=== PATIENT | male | born 1935 | race Caucasian/White ===

== ENCOUNTER 2020-03-22 00:02 | Inpatient (IN) | payer OTHER, BC ==
[2020-03-22 00:42] VITALS: BMI 20.1
[2020-03-22 01:39] LABS: BASO % 0.2 % (0-2.0); HEMATOCRIT 34.7 % (35.4-49); HEMOGLOBIN 11.4 GM/dL (11.7-16.9); LYMPH % 23.7 % (8-40); MCH 26.4 pg (25.7-33.7); MCHC 32.8 g/dl (32.0-35.9); MEAN CELL VOLUME 80.5 fl (80-96); MEAN PLT VOLUME 8.9 fl (7.5-11.1); MONO % 10.2 % (3.8-10.2); NEUT % 65.9 % (42.8-82.8); PLATELET COUNT 25 K/MM3 (134-434); RBC 4.31 M/mm3 (4.00-5.60)
[2020-03-22 01:49] LABS: INR 1.08 (0.83-1.09); PROTHROMBIN TIME (PATIENT) 13.2 SEC (9.7-13.0)
[2020-03-22 01:52] LABS: ACTIVATED PTT 31.1 SECONDS (25.2-36.5)
[2020-03-22 01:53] LABS: WHITE BLOOD COUNT 1.3 K/mm3 (4.0-10.0)
[2020-03-22 01:59] LABS: POTASSIUM 3.9 mmol/L (3.5-5.1)
[2020-03-22 02:00] LABS: ALBUMIN 2.8 g/dl (3.4-5.0); CALCIUM 7.9 mg/dL (8.5-10.1)
[2020-03-22 02:02] LABS: BLOOD UREA NITROGEN 37.5 mg/dL (7-18)
[2020-03-22 02:05] LABS: CREATININE 1.5 mg/dL (0.55-1.3)
[2020-03-22 02:06] LABS: BILIRUBIN,TOTAL 0.5 mg/dL (0.2-1)
[2020-03-22] MEDS ORDERED: PIPERACILLIN/TAZOB 4.5 GM 4.5 GM in DEXTROSE 5%-WATER 100 ML IVPB ONE (04:23)
[2020-03-22] MEDS ORDERED: VANCOMYCIN 1,000 MG in DEXTROSE 5%-WATER - 250 ML IVPB ONE (04:23)
[2020-03-22] MEDS ORDERED: SODIUM CHLORIDE 1,000 ML IV SCH ×2 (04:30→06:07)
[2020-03-22] MEDS ORDERED: VANCOMYCIN 1 GRAM (PRE-DOCKED) 1,000 MG/250 ML BAG IVPB ONE (04:47)
[2020-03-22] MEDS ORDERED: PIPERACILLIN/TAZOB 4.5 GM 4.5 GM/100 ML BAG IVPB ONE ×2 (04:47→16:57)
[2020-03-22 05:50] LABS: BASO % 0.2 % (0-2.0); HEMATOCRIT 32.1 % (35.4-49); HEMOGLOBIN 10.6 GM/dL (11.7-16.9); LYMPH % 24.9 % (8-40); MCH 26.7 pg (25.7-33.7); MCHC 33.1 g/dl (32.0-35.9); MEAN CELL VOLUME 80.6 fl (80-96); MEAN PLT VOLUME 9.1 fl (7.5-11.1); MONO % 8.2 % (3.8-10.2); NEUT % 66.7 % (42.8-82.8); PLATELET COUNT 28 K/MM3 (134-434); RBC 3.98 M/mm3 (4.00-5.60); RDW 18.1 % (11.9-15.9); WHITE BLOOD COUNT 1.5 K/mm3 (4.0-10.0)
[2020-03-22] MEDS ORDERED: LIDOCAINE 5% TOPICAL PATCH TP ONE (07:23)
[2020-03-22] MEDS ORDERED: ACETAMINOPHEN 1000 MG/100 ML VIAL (NON FORMULARY) IVPB ONE (07:23)
[2020-03-22] MEDS ORDERED: LIDOCAINE 5% TOPICAL PATCH ONE (08:20)
[2020-03-22] MEDS ORDERED: ACETAMINOPHEN INJECTION 100 ML IVPB ONE (08:20)
[2020-03-22 09:50] LABS: PLATELET ESTIMATE DECREASED
[2020-03-22 09:51] LABS: PLATELET ESTIMATE DECREASED
[2020-03-22 10:06] LABS: BASO % 0.5 % (0-2.0); EOS % 0.1 % (0-4.5); HEMATOCRIT 31.4 % (35.4-49); HEMOGLOBIN 10.3 GM/dL (11.7-16.9); LYMPH % 26.9 % (8-40); MCH 26.3 pg (25.7-33.7); MCHC 32.8 g/dl (32.0-35.9); MEAN CELL VOLUME 80.3 fl (80-96); MONO % 10.8 % (3.8-10.2); NEUT % 61.7 % (42.8-82.8); PLATELET COUNT 26 K/MM3 (134-434); RBC 3.91 M/mm3 (4.00-5.60); RDW 17.9 % (11.9-15.9); RETICULOCYTES 0.49 % (0.5-1.5)
[2020-03-22 10:24] LABS: POTASSIUM 3.5 mmol/L (3.5-5.1)
[2020-03-22 10:26] LABS: CALCIUM 7.1 mg/dL (8.5-10.1)
[2020-03-22 10:27] LABS: BLOOD UREA NITROGEN 38.3 mg/dL (7-18)
[2020-03-22 10:30] LABS: CREATININE 1.1 mg/dL (0.55-1.3)
[2020-03-22 10:39] LABS: WHITE BLOOD COUNT 1.1 K/mm3 (4.0-10.0)
[2020-03-22 10:43] LABS: EPI CELLS 35 /uL (0-25.1); HYALINE CASTS 20 /uL (0-3.1); URINE APPEARANCE TURBID; URINE BACTERIA 26 /uL (0-1359); URINE BILIRUBIN NEGATIVE (NEGATIVE); URINE COLOR YELLOW; URINE GLUCOSE (UA) NEGATIVE (NEGATIVE); URINE KETONE NEGATIVE (NEGATIVE); URINE LEUK ESTERASE NEGATIVE (NEGATIVE); URINE NITRITE NEGATIVE (NEGATIVE); URINE PROTEIN 1+ (NEGATIVE); URINE RBC 57 /uL (0-23.9); URINE UROBILINOGEN 0.2 mg/dL (0.2-1.0); URINE WBC 18 /uL (0-25.8)
[2020-03-22] MEDS ORDERED: SODIUM CHLORIDE 500 ML IV STA (10:57)
[2020-03-22 14:03] LABS: ANISOCYTOSIS 1+; MACROCYTOSIS 1+
[2020-03-22 14:05] LABS: PLATELET ESTIMATE DECREASED
[2020-03-22] MEDS: PIPERACILLIN/TAZOB 4.5 GM 4.5 GM in DEXTROSE 5%-WATER 100 ML IVPB SCH ×2 (17:19→18:20)
[2020-03-22] MEDS: SODIUM CHLORIDE 1,000 ML IV SCH (17:19)
[2020-03-22] MEDS ORDERED: DEXAMETHASONE SOD PHOSPHATE 4 MG/1 ML VIAL ONE (18:21)
[2020-03-22] MEDS: DEXAMETHASONE SOD PHOSPHATE 4 MG/1 ML VIAL IVPB SCH (18:23)
[2020-03-22] MEDS: LIDOCAINE PATCH REMOVAL MC SCH (22:53)
[2020-03-22] MEDS: ACETAMINOPHEN 325 MG TABLET (FP) PO PRN (22:53)
[2020-03-22] MEDS ORDERED: REMDESIVIR 200 MG in SODIUM CHLORIDE 210 ML IVPB ONE (23:00)
[2020-03-22] MEDS ORDERED: VANCOMYCIN 750 MG in DEXTROSE 5%-WATER - 250 ML IVPB SCH (23:00)
[2020-03-23] MEDS ORDERED: PIPERACILLIN/TAZOBACTAM 4.5 GM VIAL IVPB ONE ×3 (01:55→17:13)
[2020-03-23] MEDS ORDERED: DEXTROSE 5%-WATER 100 ML IVPB ONE ×3 (01:55→17:14)
[2020-03-23] MEDS: PIPERACILLIN/TAZOB 4.5 GM 4.5 GM in DEXTROSE 5%-WATER 100 ML IVPB SCH ×3 (03:16→17:16)
[2020-03-23] MEDS: DEXAMETHASONE SOD PHOSPHATE 4 MG/1 ML VIAL IVPB SCH (12:31)
[2020-03-23 14:06] LABS: BASO % 0.2 % (0-2.0); HEMATOCRIT 36.2 % (35.4-49); HEMOGLOBIN 11.8 GM/dL (11.7-16.9); MCH 26.4 pg (25.7-33.7); MCHC 32.5 g/dl (32.0-35.9); MEAN PLT VOLUME 10.1 fl (7.5-11.1); MONO % 10.7 % (3.8-10.2); NEUT % 77.1 % (42.8-82.8); PLATELET COUNT 39 K/MM3 (134-434); RBC 4.46 M/mm3 (4.00-5.60); RDW 18.9 % (11.9-15.9); WHITE BLOOD COUNT 2.5 K/mm3 (4.0-10.0)
[2020-03-23 14:24] LABS: POTASSIUM 3.5 mmol/L (3.5-5.1)
[2020-03-23 14:26] LABS: CALCIUM 7.5 mg/dL (8.5-10.1)
[2020-03-23 14:27] LABS: ALBUMIN 2.4 g/dl (3.4-5.0); BLOOD UREA NITROGEN 27.8 mg/dL (7-18)
[2020-03-23 14:30] LABS: CREATININE 1.1 mg/dL (0.55-1.3)
[2020-03-23 14:31] LABS: BILIRUBIN,TOTAL 0.3 mg/dL (0.2-1)
[2020-03-23 14:33] LABS: TOT PROT 6.2 g/dl (6.4-8.2)
[2020-03-23] MEDS: ACETAMINOPHEN 325 MG TABLET (FP) PO PRN (14:43)
[2020-03-23] MEDS: SODIUM CHLORIDE 1,000 ML IV SCH (14:44)
[2020-03-23 15:09] LABS: ANISOCYTOSIS 1+; MACROCYTOSIS 1+; PLATELET ESTIMATE DECREASED
[2020-03-23] MEDS: AMINO ACIDS/PROTEIN HYDROLYS 30 ML LIQUID.PKT PO SCH (17:16)
[2020-03-23] MEDS: LIDOCAINE PATCH REMOVAL MC SCH (23:01)
[2020-03-23] MEDS ORDERED: PT OWN MED DRAWER 7, Y5N ONE (23:32)
[2020-03-23] MEDS: REMDESIVIR 100 MG in SODIUM CHLORIDE 230 ML IVPB SCH (23:37)
[2020-03-24] MEDS ORDERED: DEXTROSE 5%-WATER 100 ML IVPB ONE ×2 (03:02→08:26)
[2020-03-24] MEDS ORDERED: PIPERACILLIN/TAZOBACTAM 4.5 GM VIAL IVPB ONE ×2 (03:02→08:25)
[2020-03-24] MEDS: PIPERACILLIN/TAZOB 4.5 GM 4.5 GM in DEXTROSE 5%-WATER 100 ML IVPB SCH ×2 (03:15→09:13)
[2020-03-24 07:36] LABS: BASO % 0.2 % (0-2.0); HEMOGLOBIN 10.1 GM/dL (11.7-16.9); MCH 26.5 pg (25.7-33.7); MCHC 32.7 g/dl (32.0-35.9); MEAN CELL VOLUME 81.2 fl (80-96); MEAN PLT VOLUME 9.6 fl (7.5-11.1); MONO % 13.6 % (3.8-10.2); NEUT % 71.2 % (42.8-82.8); PLATELET COUNT 42 K/MM3 (134-434); RBC 3.82 M/mm3 (4.00-5.60); RDW 18.4 % (11.9-15.9)
[2020-03-24] MEDS: DEXAMETHASONE SOD PHOSPHATE 4 MG/1 ML VIAL IVPB SCH (09:13)
[2020-03-24] MEDS: AMINO ACIDS/PROTEIN HYDROLYS 30 ML LIQUID.PKT PO SCH ×2 (09:14→18:05)
[2020-03-24] MEDS ORDERED: PT OWN MED DRAWER 7, Y5N ONE (09:15)
[2020-03-24] MEDS: MULTIVIT-MINERALS ORAL LIQUID PO SCH (09:16)
[2020-03-24] MEDS ORDERED: TAMSULOSIN HCL 0.4 MG CAP PO SCH (10:09)
[2020-03-24 11:01] LABS: ANISOCYTOSIS 0; HELMET CELLS 0; HOWELL-JOLLY BODIES 0; MACROCYTOSIS 0; OVALOCYTE 0; PLATELET ESTIMATE DECREASED; ROULEAU 0; SICKELED CELLS 0; TARGET CELLS 0; TEAR DROP CELLS 0; TOXIC GRANULATION 0
[2020-03-24 13:04] LABS: BILIRUBIN,TOTAL 0.2 mg/dL (0.2-1); BLOOD UREA NITROGEN 25.9 mg/dL (7-18); CALCIUM 7.3 mg/dL (8.5-10.1); CREATININE 0.9 mg/dL (0.55-1.3); MAGNESIUM 1.9 mg/dL (1.8-2.4); PHOSPHOROUS 3.1 mg/dL (2.5-4.9); POTASSIUM 3.3 mmol/L (3.5-5.1); TOT PROT 5.2 g/dl (6.4-8.2)
[2020-03-24] MEDS ORDERED: POTASSIUM CHLORIDE ORAL LIQUID 20 MEQ/15 ML PO ONE (15:31)
[2020-03-24] MEDS: SODIUM CHLORIDE 1,000 ML IV SCH (15:57)
[2020-03-24] MEDS ORDERED: PIPERACILLIN/TAZOBACTAM 3.375 GM VIAL IVPB ONE (17:49)
[2020-03-24] MEDS ORDERED: DEXTROSE 5%-WATER - 50 ML IVPB ONE (17:49)
[2020-03-24] MEDS: PIPERACILLIN/TAZOB 3.375 GM 3.375 GM in DEXTROSE 5%-WATER - 50 ML IVPB SCH (18:05)
[2020-03-24] MEDS ORDERED: LIDOCAINE PATCH REMOVAL MC SCH (22:00)
[2020-03-24] MEDS: REMDESIVIR 100 MG in SODIUM CHLORIDE 230 ML IVPB SCH (22:34)
[2020-03-25] MEDS ORDERED: PIPERACILLIN/TAZOBACTAM 3.375 GM VIAL IVPB ONE ×3 (01:17→17:25)
[2020-03-25] MEDS ORDERED: DEXTROSE 5%-WATER - 50 ML IVPB ONE ×3 (01:17→17:25)
[2020-03-25] MEDS: PIPERACILLIN/TAZOB 3.375 GM 3.375 GM in DEXTROSE 5%-WATER - 50 ML IVPB SCH ×3 (01:18→17:35)
[2020-03-25 07:15] LABS: POTASSIUM 3.2 mmol/L (3.5-5.1)
[2020-03-25 07:16] LABS: BASO % 0.1 % (0-2.0); HEMATOCRIT 31.3 % (35.4-49); HEMOGLOBIN 10.4 GM/dL (11.7-16.9); LYMPH % 17.6 % (8-40); MCH 26.7 pg (25.7-33.7); MCHC 33.1 g/dl (32.0-35.9); MEAN CELL VOLUME 80.7 fl (80-96); MEAN PLT VOLUME 9.5 fl (7.5-11.1); MONO % 14.2 % (3.8-10.2); NEUT % 68.1 % (42.8-82.8); PLATELET COUNT 61 K/MM3 (134-434); RBC 3.88 M/mm3 (4.00-5.60); RDW 18.5 % (11.9-15.9); WHITE BLOOD COUNT 2.7 K/mm3 (4.0-10.0)
[2020-03-25 07:22] LABS: BLOOD UREA NITROGEN 25.3 mg/dL (7-18); CREATININE 0.9 mg/dL (0.55-1.3); MAGNESIUM 1.6 mg/dL (1.8-2.4)
[2020-03-25 07:23] LABS: PHOSPHOROUS 2.4 mg/dL (2.5-4.9)
[2020-03-25 07:35] LABS: CALCIUM 6.9 mg/dL (8.5-10.1)
[2020-03-25] MEDS ORDERED: MAGNESIUM OXIDE 400 MG TABLET (FP) PO ONE ×2 (08:35→22:00)
[2020-03-25] MEDS ORDERED: PT OWN MED DRAWER 7, Y5N ONE ×3 (08:39→22:45)
[2020-03-25] MEDS ORDERED: NAPH,MB-DB/K PH,MBDB POWDER PACKET PO ONE (09:30)
[2020-03-25] MEDS: KCL 10 MEQ IVPB 10 MEQ/100 ML INFUS.BAG IVPB SCH (09:53)
[2020-03-25] MEDS ORDERED: SODIUM CHLORIDE 1,000 ML with POTASSIUM CHLORIDE 40 MEQ IV SCH (10:00)
[2020-03-25] MEDS: AMINO ACIDS/PROTEIN HYDROLYS 30 ML LIQUID.PKT PO SCH ×2 (10:03→17:35)
[2020-03-25] MEDS: DEXAMETHASONE SOD PHOSPHATE 4 MG/1 ML VIAL IVPB SCH (10:03)
[2020-03-25] MEDS: MULTIVIT-MINERALS ORAL LIQUID PO SCH (10:03)
[2020-03-25] MEDS: TAMSULOSIN HCL 0.4 MG CAP PO SCH (10:03)
[2020-03-25] MEDS: POTASSIUM CHLORIDE ORAL LIQUID 20 MEQ/15 ML PO SCH ×2 (10:03→22:03)
[2020-03-25 11:59] LABS: ANISOCYTOSIS 1+; MACROCYTOSIS 1+; PLATELET ESTIMATE DECREASED
[2020-03-25] MEDS: POTASSIUM CHLORIDE 40 MEQ in SODIUM CHLORIDE 1,000 ML IV SCH (15:36)
[2020-03-25 16:08] LABS: PARV B19 IGG 1.2 index (0.0-0.8); PARV B19 IGM 0.2 index (0.0-0.8)
[2020-03-25] MEDS: REMDESIVIR 100 MG in SODIUM CHLORIDE 230 ML IVPB SCH (23:09)
[2020-03-26] MEDS ORDERED: PIPERACILLIN/TAZOBACTAM 3.375 GM VIAL IVPB ONE (01:09)
[2020-03-26] MEDS ORDERED: DEXTROSE 5%-WATER - 50 ML IVPB ONE (01:09)
[2020-03-26] MEDS: PIPERACILLIN/TAZOB 3.375 GM 3.375 GM in DEXTROSE 5%-WATER - 50 ML IVPB SCH (01:13)
[2020-03-26] MEDS: POTASSIUM CHLORIDE 40 MEQ in SODIUM CHLORIDE 1,000 ML IV SCH (03:50)
[2020-03-26 08:14] LABS: BASO % 0.4 % (0-2.0); HEMATOCRIT 31.5 % (35.4-49); HEMOGLOBIN 10.5 GM/dL (11.7-16.9); LYMPH % 17.7 % (8-40); MCH 26.6 pg (25.7-33.7); MCHC 33.3 g/dl (32.0-35.9); MONO % 8.7 % (3.8-10.2); NEUT % 73.2 % (42.8-82.8); PLATELET COUNT 82 K/MM3 (134-434); RBC 3.93 M/mm3 (4.00-5.60); RDW 18.9 % (11.9-15.9); WHITE BLOOD COUNT 2.6 K/mm3 (4.0-10.0)
[2020-03-26 08:29] LABS: POTASSIUM 3.9 mmol/L (3.5-5.1)
[2020-03-26 08:36] LABS: CALCIUM 7.1 mg/dL (8.5-10.1)
[2020-03-26 08:38] LABS: BLOOD UREA NITROGEN 21.9 mg/dL (7-18); MAGNESIUM 1.6 mg/dL (1.8-2.4)
[2020-03-26 08:40] LABS: CREATININE 0.8 mg/dL (0.55-1.3); PHOSPHOROUS 2.2 mg/dL (2.5-4.9)
[2020-03-26 08:41] LABS: BILIRUBIN,TOTAL 0.4 mg/dL (0.2-1); TOT PROT 5.5 g/dl (6.4-8.2)
[2020-03-26] MEDS: AMINO ACIDS/PROTEIN HYDROLYS 30 ML LIQUID.PKT PO SCH ×2 (09:12→18:38)
[2020-03-26] MEDS: POTASSIUM CHLORIDE ORAL LIQUID 20 MEQ/15 ML PO SCH (09:12)
[2020-03-26] MEDS: PANTOPRAZOLE 40 MG TABLET PO SCH (09:13)
[2020-03-26] MEDS: TAMSULOSIN HCL 0.4 MG CAP PO SCH (09:13)
[2020-03-26] MEDS: MULTIVIT-MINERALS ORAL LIQUID PO SCH (09:13)
[2020-03-26] MEDS: DEXAMETHASONE SOD PHOSPHATE 4 MG/1 ML VIAL IVPB SCH (09:13)
[2020-03-26 10:05] LABS: ANISOCYTOSIS 0; MACROCYTOSIS 0; PLATELET ESTIMATE DECREASED
[2020-03-26] MEDS ORDERED: MAGNESIUM OXIDE 400 MG TABLET (FP) PO ONE (10:18)
[2020-03-26] MEDS ORDERED: NAPH,MB-DB/K PH,MBDB POWDER PACKET PO ONE (10:19)
[2020-03-26] MEDS: ENOXAPARIN NA (PORCINE) 60 MG/0.6 ML DISP.SYRIN SQ SCH ×2 (11:55→22:38)
[2020-03-26] MEDS ORDERED: SODIUM CHLORIDE 1,000 ML IV SCH (12:04)
[2020-03-26] MEDS ORDERED: REMDESIVIR 100 MG in SODIUM CHLORIDE 230 ML IVPB SCH (16:00)
[2020-03-27] MEDS: MULTIVIT-MINERALS ORAL LIQUID PO SCH (11:25)
[2020-03-27] MEDS: ENOXAPARIN NA (PORCINE) 60 MG/0.6 ML DISP.SYRIN SQ SCH ×2 (11:25→22:52)
[2020-03-27] MEDS: TAMSULOSIN HCL 0.4 MG CAP PO SCH (11:25)
[2020-03-27] MEDS: AMINO ACIDS/PROTEIN HYDROLYS 30 ML LIQUID.PKT PO SCH ×2 (11:25→16:48)
[2020-03-27] MEDS: DEXAMETHASONE SOD PHOSPHATE 4 MG/1 ML VIAL IVPB SCH (11:25)
[2020-03-27] MEDS: PANTOPRAZOLE 40 MG TABLET PO SCH (11:25)
[2020-03-28 08:51] LABS: POTASSIUM 3.8 mmol/L (3.5-5.1)
[2020-03-28 08:54] LABS: ALBUMIN 2.1 g/dl (3.4-5.0); CALCIUM 7.7 mg/dL (8.5-10.1); MAGNESIUM 1.6 mg/dL (1.8-2.4)
[2020-03-28 08:57] LABS: CREATININE 0.8 mg/dL (0.55-1.3)
[2020-03-28 08:58] LABS: PHOSPHOROUS 2.9 mg/dL (2.5-4.9)
[2020-03-28 08:59] LABS: BILIRUBIN,TOTAL 0.3 mg/dL (0.2-1); TOT PROT 5.4 g/dl (6.4-8.2)
[2020-03-28 09:09] LABS: BASO % 0.2 % (0-2.0); HEMATOCRIT 30.1 % (35.4-49); HEMOGLOBIN 9.8 GM/dL (11.7-16.9); LYMPH % 13.8 % (8-40); MCH 26.4 pg (25.7-33.7); MCHC 32.6 g/dl (32.0-35.9); MEAN CELL VOLUME 80.9 fl (80-96); MEAN PLT VOLUME 9.4 fl (7.5-11.1); PLATELET COUNT 117 K/MM3 (134-434); RBC 3.72 M/mm3 (4.00-5.60); RDW 18.3 % (11.9-15.9); WHITE BLOOD COUNT 5.2 K/mm3 (4.0-10.0)
[2020-03-28] MEDS ORDERED: PT OWN MED DRAWER 7, Y5N ONE (10:16)
[2020-03-28] MEDS: AMINO ACIDS/PROTEIN HYDROLYS 30 ML LIQUID.PKT PO SCH ×2 (10:22→17:03)
[2020-03-28] MEDS: MULTIVIT-MINERALS ORAL LIQUID PO SCH (10:22)
[2020-03-28] MEDS: PANTOPRAZOLE 40 MG TABLET PO SCH (10:22)
[2020-03-28] MEDS: TAMSULOSIN HCL 0.4 MG CAP PO SCH (10:22)
[2020-03-28] MEDS: ENOXAPARIN NA (PORCINE) 60 MG/0.6 ML DISP.SYRIN SQ SCH ×2 (10:22→22:54)
[2020-03-28] MEDS: DEXAMETHASONE SOD PHOSPHATE 4 MG/1 ML VIAL IVPB SCH (10:22)
[2020-03-28 10:37] LABS: ANISOCYTOSIS 0; HELMET CELLS 0; HOWELL-JOLLY BODIES 0; MACROCYTOSIS 0; OVALOCYTE 0; PLATELET ESTIMATE DECREASED; ROULEAU 0; SICKELED CELLS 0; TARGET CELLS 0; TEAR DROP CELLS 0; TOXIC GRANULATION 0
[2020-03-29 01:37] VITALS: TEMP 98.1
[2020-03-29 07:03] VITALS: BP 138/76
[2020-03-29 07:21] LABS: BASO % 0.1 % (0-2.0); EOS % 0.1 % (0-4.5); HEMATOCRIT 28.9 % (35.4-49); HEMOGLOBIN 9.4 GM/dL (11.7-16.9); LYMPH % 11.4 % (8-40); MCH 26.3 pg (25.7-33.7); MCHC 32.6 g/dl (32.0-35.9); MEAN CELL VOLUME 80.8 fl (80-96); MEAN PLT VOLUME 9.1 fl (7.5-11.1); NEUT % 84.4 % (42.8-82.8); PLATELET COUNT 128 K/MM3 (134-434); RBC 3.58 M/mm3 (4.00-5.60); RDW 18.4 % (11.9-15.9); WHITE BLOOD COUNT 7.7 K/mm3 (4.0-10.0)
[2020-03-29 09:01] VITALS: PULSE 94
[2020-03-29] MEDS ORDERED: PT OWN MED DRAWER 7, Y5N ONE (09:43)
[2020-03-29] MEDS: ENOXAPARIN NA (PORCINE) 60 MG/0.6 ML DISP.SYRIN SQ SCH (09:48)
[2020-03-29] MEDS: AMINO ACIDS/PROTEIN HYDROLYS 30 ML LIQUID.PKT PO SCH (09:49)
[2020-03-29] MEDS: MULTIVIT-MINERALS ORAL LIQUID PO SCH (09:49)
[2020-03-29] MEDS: TAMSULOSIN HCL 0.4 MG CAP PO SCH (09:49)
[2020-03-29] MEDS: PANTOPRAZOLE 40 MG TABLET PO SCH (09:49)
[2020-03-29 10:42] LABS: ANISOCYTOSIS 1+; PLATELET ESTIMATE DECREASED
== END 2020-03-29 12:00 | disposition home or self-care (01) | DRG 871 ==
LOC: JER 00:02 → JERBED 16:48 → J4W 03-23 00:49
PROVIDERS: ADMIT Hospitalist; ATTEND Internal Medicine
PROC: XW13325 Transfusion of Convalescent Plasma (Nonautologous) into Peripheral Vein, Percutaneous Approach, New Technology Group 5 (ICD-10-PCS; principal; 2020-03-22)
PROC: XW033E5 Introduction of Remdesivir Anti-infective into Peripheral Vein, Percutaneous Approach, New Technology Group 5 (ICD-10-PCS; 2020-03-22)
DX: A41.9 Sepsis, unspecified organism (principal); U07.1 COVID-19; J12.89 Other viral pneumonia; D61.818 Other pancytopenia; N17.9 Acute kidney failure, unspecified; E87.1 Hypo-osmolality and hyponatremia; E83.42 Hypomagnesemia; D70.9 Neutropenia, unspecified; R09.02 Hypoxemia; M54.9 Dorsalgia, unspecified; R33.9 Retention of urine, unspecified; R41.82 Altered mental status, unspecified; D69.6 Thrombocytopenia, unspecified; R19.7 Diarrhea, unspecified
CPT/HCPCS: 36415; 36430; 70450-TC; 71045-TC-FY; 72100-TC-FY; 72170-TC-FY; 80048; 80053; 80061; 81003; 82040; 82550; 82553; 82728; 82746; 82962; 83605; 83615; 83721; 83735; 84100; 84155; 84165; 84443; 84484; 85025; 85045; 85379; 85384; 85610; 85730; 86140; 86747; 86850; 86900; 86901; 87040; 87086; 87804; 87899; 93005; 93010; 94761; 97116-GP; 97161-GP; 99291; C9399; C9803; J0131; P9017; U0003

== ENCOUNTER 2020-03-29 14:20 | Inpatient (IN) | payer OTHER, BC ==
[2020-03-29 15:23] VITALS: BMI 22.4
[2020-03-29 18:50] LABS: HEMATOCRIT 30.6 % (35.4-49); HEMOGLOBIN 9.9 GM/dL (11.7-16.9); MCH 26.2 pg (25.7-33.7); MCHC 32.3 g/dl (32.0-35.9); MEAN CELL VOLUME 81.1 fl (80-96); MEAN PLT VOLUME 9.3 fl (7.5-11.1); PLATELET COUNT 145 K/MM3 (134-434); RBC 3.77 M/mm3 (4.00-5.60); RDW 18.2 % (11.9-15.9); WHITE BLOOD COUNT 9.7 K/mm3 (4.0-10.0)
[2020-03-29 19:10] LABS: ALBUMIN 2.2 g/dl (3.4-5.0); BLOOD UREA NITROGEN 36.4 mg/dL (7-18)
[2020-03-29 19:11] LABS: CALCIUM 8.1 mg/dL (8.5-10.1)
[2020-03-29 19:13] LABS: CREATININE 1.1 mg/dL (0.55-1.3)
[2020-03-29 19:15] LABS: BILIRUBIN,TOTAL 0.7 mg/dL (0.2-1); TOT PROT 5.6 g/dl (6.4-8.2)
[2020-03-29 21:11] LABS: ANISOCYTOSIS 1+; MACROCYTOSIS 0; OVALOCYTE 1+; PLATELET ESTIMATE NORMAL; TEAR DROP CELLS 1+
[2020-03-29] MEDS ORDERED: ZINC SULFATE 220 MG TABLET PO SCH (22:00)
[2020-03-29] MEDS ORDERED: PANTOPRAZOLE 40 MG TABLET ONE (22:37)
[2020-03-29] MEDS ORDERED: CHOLECALCIFEROL (VIT D3) 1,000 UNIT (25 MCG) TABLET ONE (22:37)
[2020-03-29] MEDS ORDERED: ASCORBIC ACID 500 MG TABLET (FP) ONE (22:37)
[2020-03-29] MEDS: CHOLECALCIFEROL (VIT D3) 1,000 UNIT (25 MCG) TABLET PO SCH (23:54)
[2020-03-29] MEDS: ASCORBIC ACID 500 MG TABLET (FP) PO SCH (23:54)
[2020-03-29] MEDS: PANTOPRAZOLE 40 MG TABLET PO SCH (23:54)
[2020-03-30 08:12] LABS: HEMATOCRIT 29.1 % (35.4-49); HEMOGLOBIN 9.6 GM/dL (11.7-16.9); MCH 26.6 pg (25.7-33.7); MCHC 32.9 g/dl (32.0-35.9); MEAN CELL VOLUME 80.9 fl (80-96); MEAN PLT VOLUME 8.7 fl (7.5-11.1); PLATELET COUNT 143 K/MM3 (134-434); RDW 18.5 % (11.9-15.9); WHITE BLOOD COUNT 7.7 K/mm3 (4.0-10.0)
[2020-03-30 08:47] LABS: CALCIUM 7.9 mg/dL (8.5-10.1)
[2020-03-30 08:48] LABS: BLOOD UREA NITROGEN 40.3 mg/dL (7-18)
[2020-03-30] MEDS ORDERED: TAMSULOSIN HCL 0.4 MG CAP ONE (08:53)
[2020-03-30] MEDS: TAMSULOSIN HCL 0.4 MG CAP PO SCH (08:56)
[2020-03-30] MEDS ORDERED: ASCORBIC ACID 500 MG TABLET (FP) ONE (09:44)
[2020-03-30] MEDS ORDERED: LOPERAMIDE HCL 2 MG CAPSULE ONE (09:44)
[2020-03-30] MEDS ORDERED: PANTOPRAZOLE 40 MG TABLET ONE (09:44)
[2020-03-30] MEDS ORDERED: ENOXAPARIN NA (PORCINE) 40 MG/0.4 ML DISP.SYRIN SQ ONE (09:45)
[2020-03-30] MEDS ORDERED: ZINC SULFATE 220 MG CAPSULE (FP) ONE (09:45)
[2020-03-30] MEDS ORDERED: CHOLECALCIFEROL (VIT D3) 1,000 UNIT (25 MCG) TABLET ONE (09:45)
[2020-03-30] MEDS: CHOLECALCIFEROL (VIT D3) 1,000 UNIT (25 MCG) TABLET PO SCH (09:51)
[2020-03-30] MEDS: ENOXAPARIN NA (PORCINE) 40 MG/0.4 ML DISP.SYRIN SQ SCH (09:51)
[2020-03-30] MEDS: ZINC SULFATE 220 MG CAPSULE (FP) PO SCH (09:51)
[2020-03-30] MEDS: ASCORBIC ACID 500 MG TABLET (FP) PO SCH (09:51)
[2020-03-30] MEDS: LOPERAMIDE HCL 2 MG CAPSULE PO SCH (09:51)
[2020-03-30] MEDS: PANTOPRAZOLE 40 MG TABLET PO SCH (09:51)
[2020-03-31] MEDS: ASCORBIC ACID 500 MG TABLET (FP) PO SCH (10:01)
[2020-03-31] MEDS: TAMSULOSIN HCL 0.4 MG CAP PO SCH (10:01)
[2020-03-31] MEDS: PANTOPRAZOLE 40 MG TABLET PO SCH (10:01)
[2020-03-31] MEDS: ENOXAPARIN NA (PORCINE) 40 MG/0.4 ML DISP.SYRIN SQ SCH (10:01)
[2020-03-31] MEDS: CHOLECALCIFEROL (VIT D3) 1,000 UNIT (25 MCG) TABLET PO SCH (10:02)
[2020-03-31] MEDS: LOPERAMIDE HCL 2 MG CAPSULE PO SCH (10:02)
[2020-03-31] MEDS: ZINC SULFATE 220 MG CAPSULE (FP) PO SCH (10:02)
[2020-03-31 18:05] VITALS: BP 101/62; PULSE 107; TEMP 99
== END 2020-03-31 20:36 | DRG 205 ==
LOC: JER 14:20 → JERBED 18:06 → OBSVTOIN 21:52 → J4W 03-30 18:57
PROVIDERS: ADMIT Internal Medicine; ATTEND Internal Medicine
DX: R09.02 Hypoxemia (principal); U07.1 COVID-19; D61.818 Other pancytopenia; R74.01 Elevation of levels of liver transaminase levels; R13.10 Dysphagia, unspecified; D64.9 Anemia, unspecified
CPT/HCPCS: 36415; 71045-TC-FY; 80048; 80053; 82728; 83540; 83550; 85025; 85027; 93005; 93010; 97116-GP; 97161-GP; 99285-25; C9803; G0378; U0003